=== PATIENT | female | born 1985 | race Caucasian/White ===

== ENCOUNTER 2017-04-11 14:38 | Emergency (ER) | payer BC ==
[2017-04-11 14:55] VITALS: BP 115/77
--- NOTE | 2017-04-11 15:20 | UC ---
Respiratory Complaint HPI - HPI Summary HPI Summary: 32 yo female with sore throat since this AM fever no cough or runny nose - History of Current Complaint Chief Complaint: UCGeneralIllness Stated Complaint: resp fever Time Seen by Provider: 04/11/17 15:16 Hx Obtained From: Patient Hx Last Menstrual Period: 03/15/17 Onset/Duration: Gradual Onset, Lasting Hours Timing: Constant Severity Initially: Mild Severity Currently: Mild Pain Intensity: 4 Pain Scale Used: 0-10 Numeric - Allergies/Home Medications Allergies/Adverse Reactions: Allergies Allergy/AdvReac Type Severity Reaction Status Date / Time No Known Allergies Allergy Verified 04/11/17 14:56 PMH/Surg Hx/FS Hx/Imm Hx Previously Healthy: Yes - Surgical History Surgical History: Yes Surgery Procedure, Year, and Place: 2 c sections - Family History Known Family History: Positive: Hypertension - Social History Alcohol Use: None Substance Use Type: None Smoking Status (MU): Never Smoked Tobacco Have You Smoked in the Last Year: No - Immunization History Most Recent Influenza Vaccination: 2017 Review of Systems Constitutional: Fever Skin: Negative Eyes: Negative ENT: Sore Throat Respiratory: Negative Cardiovascular: Negative Gastrointestinal: Negative Genitourinary: Negative Motor: Negative Neurovascular: Negative Musculoskeletal: Negative Neurological: Negative Psychological: Negative Is Patient Immunocompromised?: No All Other Systems Reviewed And Are Negative: Yes Physical Exam Triage Information Reviewed: Yes Appearance: Well-Appearing, No Pain Distress, Well-Nourished Vital Signs: Initial Vital Signs Temp 100.7 F 04/11/17 14:51 Pulse 107 04/11/17 14:51 Resp 20 04/11/17 14:51 BP 115/77 04/11/17 14:51 Pulse Ox 100 04/11/17 14:51 Vital Signs Reviewed: Yes Eyes: Positive: Conjunctiva Clear ENT: Positive: Hearing grossly normal, Pharyngeal erythema, TMs normal, Tonsillar swelling, Uvula midline. Negative: Nasal congestion, Nasal drainage, Trismus, Muffled voice, Hoarse voice, Dental tenderness Neck: Positive: Supple, Nontender, Enlarged Nodes @ - ant cervical Respiratory: Positive: Lungs clear, Normal breath sounds, No respiratory distress, No accessory muscle use Cardiovascular: Positive: RRR, No Murmur, Pulses Normal Abdomen Description: Positive: Nontender, No Organomegaly Musculoskeletal: Positive: ROM Intact, No Edema Neurological: Positive: Alert, Muscle Tone Normal Psychological Exam: Normal Skin Exam: Normal UC Diagnostic Evaluation - Laboratory Pertinent Lab Values Are: WNL Except: - strep (+) O2 Sat by Pulse Oximetry: 100 - normal/not hypoxic Respiratory Course/Dx - Differential Dx/Diagnosis Provider Diagnoses: strep throat Discharge - Discharge Plan Condition: Stable Disposition: HOME Prescriptions: Amoxicillin PO (*) [Amoxicillin 875 MG (*)] 875 mg PO BID #20 tab Patient Education Materials: Strep Throat (ED) Referrals: Bing Lovett CNM [Primary Care Provider] - Additional Instructions: recheck in 3-4 days if not better
== END 2017-04-11 15:52 | disposition home or self-care (01) ==
LOC: UCEAST 14:38
DX: J02.0 Streptococcal pharyngitis (principal)
CPT/HCPCS: 87651; 99212; G0463

== ENCOUNTER 2018-08-16 12:29 | Emergency (ER) | payer BC ==
--- NOTE | 2018-08-16 12:50 | UC ---
Lower Extremity/Ankle HPI - HPI Summary HPI Summary: Patient has had left foot pain since Sunday of this week. No specific injury. She states that she wore sneakers when she went out walking and after that started hurting more in the anterior left ankle along the tendon. - History of Current Complaint Stated Complaint: SWOLLEN FOOT Time Seen by Provider: 08/16/18 12:50 Hx Obtained From: Patient Hx Last Menstrual Period: 03/15/17 ?: No Onset/Duration: Gradual Onset Severity Initially: Mild Severity Currently: Mild Aggravating Factor(s): Ambulation Alleviating Factor(s): Rest Able to Bear Weight: Yes - Allergies/Home Medications Allergies/Adverse Reactions: Allergies Allergy/AdvReac Type Severity Reaction Status Date / Time No Known Allergies Allergy Verified 08/16/18 13:05 PMH/Surg Hx/FS Hx/Imm Hx Previously Healthy: Yes - Surgical History Surgical History: Yes Surgery Procedure, Year, and Place: 2 c sections - Family History Known Family History: Positive: Hypertension - Social History Alcohol Use: None Substance Use Type: None Smoking Status (MU): Never Smoked Tobacco Have You Smoked in the Last Year: No - Immunization History Most Recent Influenza Vaccination: 2017 Review of Systems All Other Systems Reviewed And Are Negative: Yes Motor: Positive: Negative Neurovascular: Positive: Negative Musculoskeletal: Positive: Other: - Mild pain over the anterior left ankle right on the tendon. Neurological: Positive: Negative Psychological: Positive: Negative Is Patient Immunocompromised?: No Physical Exam Triage Information Reviewed: Yes Appearance: Well-Appearing, No Pain Distress, Well-Nourished, Ill-Appearing Vital Signs Reviewed: Yes Musculoskeletal Exam: Normal Musculoskeletal: Positive: Strength Intact, ROM Intact, Other: - Good peripheral pulses neuro sensation capillary refill. No swelling or deformity or bruising. Base of the fifth and first metatarsals are nontender on palpation. Achilles is intact. Patient has tenderness on palpation to the anterior left ankle along the tenderness however there is no erythema. Neurological Exam: Normal Psychological Exam: Normal Lower Extremity Course/Dx - Course Course Of Treatment: I believe the patient has developed a tendinitis. We talked about proper footwear. She is to apply heat to the sore area and take Motrin follow-up with a copy supervisor or orthopedist if no improvement early next week. - Differential Dx/Diagnosis Provider Diagnosis: Tendonitis of ankle or foot Discharge - Sign-Out/Discharge Documenting (check all that apply): Patient Departure All imaging exams completed and their final reports reviewed: No Studies - Discharge Plan Condition: Fair Disposition: HOME Patient Education Materials: Tendinitis (ED) Referrals: No Primary Care Phys,[facility] [Primary Care Provider] - Delano Petersen DO [Doctor of Osteopathy] - Additional Instructions: Avoid movements that cause pain, apply warm moist heat to the area 4-6 times a day for 20 minutes each time, take Motrin 600 mg every 8 hours with food. Follow-up with either an orthopedist or copy supervisor early next week if continued pain. Follow-up with the store we spoke about or another store that specializes in running and walking footwear. - Billing Disposition and Condition Condition: FAIR Disposition: Home
[2018-08-16 13:05] VITALS: BP 110/81
== END 2018-08-16 13:20 | disposition home or self-care (01) ==
LOC: UCEAST 12:29
DX: M77.52 Other enthesopathy of left foot and ankle (principal)
CPT/HCPCS: 99211; G0463